=== PATIENT | female | born 1930 | race Two or more races ===

== ENCOUNTER 2017-07-24 22:17 | Inpatient (IN) | payer OTHER ==
[~2017-07-24] VITALS: Ht 147.3 cm; Wt 45.4 kg
[~2017-07-24 22:17] MED LIST: IMDUR 60MG60 MG; INTESTINEX1 CA1 PO; LEVAQUIN750 MG PO; LISINOPRIL10 MG; METOPROLOL SUCC25 MG; METOPROLOL TART50 MG PO; URETRON DS1 TAB; ZOVIRAX5 GM; [UNRECOGNIZED DRUG - OTHER]; [UNRECOGNIZED DRUG - OTHER] PO
[2017-07-28] MEDS ORDERED: LEVAQUIN500 MG PO (16:32)
[2017-07-28] MEDS ORDERED: TOPROL XL25 M1 PO (16:32)
== END 2017-07-28 16:50 | disposition home or self-care (01) | DRG 690 ==
LOC: ER 22:17 → MEDJ 07-25 14:38
PROC: BT43ZZZ Ultrasonography of Bilateral Kidneys (ICD-10-PCS; principal; 2017-07-25)
DX: N39.0 Urinary tract infection, site not specified (principal); E86.0 Dehydration; I10 Essential (primary) hypertension; B96.29 Other Escherichia coli [E. coli] as the cause of diseases classified elsewhere